=== PATIENT | female | born 1990 | race African-American/Black ===

== ENCOUNTER 2019-12-13 03:10 | Emergency (ER) | payer SELFPAY ==
[~2019-12-13] VITALS: Ht 157.5 cm; Wt 105.2 kg
[2019-12-13 03:23] VITALS: Ht 157.5 cm; Wt 105.2 kg
[2019-12-13 04:43] VITALS: BP 153/101
[2019-12-13 05:39] LABS: microscopic required? NO
[2019-12-13 06:24] LABS: UA SPECIFIC GRAVITY >=1.030 (1.005-1.035); urine erythrocyte NEGATIVE (NEGATIVE)
[2019-12-14 08:06] LABS: RAPID PLASMA REAGIN Non Reactive (Non Reactive)
== END 2019-12-13 04:43 | disposition home or self-care (01) ==
LOC: ED 03:10
PROVIDERS: Emergency Medicine
DX: A56.8 Sexually transmitted chlamydial infection of other sites (principal)
CPT/HCPCS: 87491; 87591; J0696